=== PATIENT | female | born 1990 | race Caucasian/White ===

== ENCOUNTER 2020-08-20 09:58 | Observation (INO) ==
[2020-08-20 16:19] LABS: Hematocrit 38.2 % (37.0-47.0); Hemoglobin 12.2 gm/dL (12.5-16.0); Mean Cell Volume 88.6 fl (78-100); Mean Corpuscular Hemoglobin 28.3 pg (27-31); Mean Corpuscular Hgb Conc 31.9 g/dl (32-36); Mean Platelet Volume 9.8 fl (8-12.5); Neutrophil # 9.2 K/mm3 (1.3-6.0); Neutrophil % 74.3 % (42-75.0); Platelet Count 231 K/mm3 (150-450); Red Blood Count 4.31 M/mm3 (4.2-5.4); Red Cell Distribution Width 13.9 % (11.5-14.0); White Blood Count 12.4 K/mm3 (4.0-10.5)
[2020-08-20 16:32] LABS: Albumin * 2.3 gm/dl (3.4-5.0); Anion Gap 9.8 mmol/L (6.8-13.8); BUN/Creatinine Ratio 13.7 (9.0-21.6); Bilirubin, Total 0.2 mg/dL (0.0-1.1); Carbon Dioxide 27.1 mmol/L (24-32.6); Potassium 3.9 mmol/L (3.4-4.6); Total Protein 5.8 gm/dL (6.2-8.2)
[2020-08-20] MEDS ORDERED: INSULIN NPH HUMAN ISOPHANE 100 UNITS/ML VIAL SC SCH ×3 (17:00→21:00)
[2020-08-20] MEDS ORDERED: INSULIN LISPRO 100 UNITS/ML VIAL SC SCH (17:00)
[2020-08-20] MEDS: INSULIN LISPRO 100 UNITS/ML VIAL SC SCH (18:12)
[2020-08-20] MEDS ORDERED: ALBUTEROL SULFATE 2.5 MG/0.5 ML VIAL.NEB IH PRN (19:25)
[2020-08-20] MEDS ORDERED: ALBUTEROL SULFATE 200 PUFF INHALER IH PRN (19:25)
--- NOTE | 2020-08-20 19:25 | HP ---
Chief Complaint - Chief Complaint Date of Service: 08/20/20 Time of Service: 19:10 Chief Complaint: poorly controlled blood sugars History of Present Illness: 29 yo at 36w0d admitted for 23 hour observation for management of uncontrolled blood sugars. Patient has failed outpatient management of BS and ultrasound today shows accelerated growth especially of the AC. BS are erratic, suspecting poor compliance with diet. This complicated by anemia, anxiety/depression, asthma, GDM - insulin dependent, smoker, substance abuse in early , recurrent UTIs despite tx and suppressive tx, h/o PTL, morbid obesity. Rh positive Rubella Non-immune GBS negative. Medical History (Last Reviewed 08/20/20 @ 19:17 by Dc Juan DO) History of delivery, currently (Chronic) with inconclusive viability (Ruled-out) gestational sac 1.55cm consistent with 6w2d gestational age on 01/22/20 with 4.5mm yolk sac and no pole. 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 13 oz fluid around heart, 30 oz fluid around lungs, no known cause Gestational diabetes mellitus (GDM) Onset Date: ~01/15/16 with history of pre-term labor Onset Date: ~03/02/16 Shingles age 13 Surgical History: Surgical History (Last Reviewed 08/20/20 @ 19:17 by Dc Jaun DO) H/O adenoidectomy Onset Date: ~2004 H/O arthroscopic knee surgery Onset Date: ~2008 right ACL repair History of colposcopy Onset Date: ~2007 2 colposcopy per year 2007, 2008, 2009, 2010, 2011 History of thoracentesis age 12, fluid removal from heart and lungs Hx of tonsillectomy Onset Date: ~2004 Family History: Family History (Last Reviewed 08/20/20 @ 19:17 by Dc Juan DO) Mother Hypertension Asthma Father Hypertension CVA (cerebral vascular accident) Social History: (Last Reviewed 08/20/20 @ 19:17 by Dc Juan DO) Social History: Marital status: current occupational status: employed current occupation: [employer] Highest level of school completed/degree received: GED or equivalent Service: No Tobacco: Smoking Status: Current every day smoker tobacco type: cigarettes Smoking cigarettes per day: 5 Alcohol: alcohol intake: never Substance Use: substance use type: former substance user Dietary Habits: caffeine: Yes Review Of Systems (GEN) - Review of Systems Generalized/Overall Review: Present: No Symptoms Reported EENTM: Present: No Symptoms Reported Respiratory: Present: No Symptoms Reported Cardiac: Present: No Symptoms Reported Abdominal: Present: Other - discomfort due to Genitourinary: Present: Frequency Musculoskeletal: Present: Back Pain Neurological: Present: No Symptoms Reported Skin: Present: No Symptoms Reported Endocrine: Present: No Symptoms Reported Allergies/Adverse Reactions: Allergies Allergy/AdvReac Type Severity Reaction Status Date / Time cat dander Allergy Severe throat Verified 08/20/20 15:28 mendoza morrison No Known Drug Allergies Allergy Verified 08/20/20 15:28 Home Medications: HOME MEDICATIONS RX: Albuterol Sulfate [Albuterol Sulfate 0.63 MG/3ML] 0.63 mg INHALATION Q4H PRN 02/29/16 [Last Taken Unknown] RX: Albuterol Sulfate [Proair Hfa] 1 puff INHALATION QID PRN 02/29/16 [Last Taken Unknown] RX: Buspirone HCl 10 mg PO DAILY 02/29/16 [Last Taken 03/07/16] RX: Cetirizine HCl [Zyrtec] 10 mg PO DAILY 02/29/16 [Last Taken 03/07/16] RX: Citalopram Hydrobromide [Citalopram HBr] 10 mg PO DAILY 02/29/16 [Last Taken 03/07/16] RX: Vits96/Iron Fum/Folic [ S] 1 tab PO DAILY 02/29/16 [Last Taken 03/25/16] aspirin 81 mg tablet,delayed release 81 mg PO DAILY #30 tab 04/02/20 [Last Taken Unknown] blood sugar diagnostic See Rx Instructions .ROUTE .MEDSUPPLY #100 ea 06/14/20 [Last Taken Unknown] blood-glucose meter See Rx Instructions .ROUTE .MEDSUPPLY #1 ea 06/14/20 [Last Taken Unknown] lancets 28 gauge See Rx Instructions .ROUTE .MEDSUPPLY #100 ea 06/14/20 [Last Taken Unknown] urine glucose-ketones test See Rx Instructions .ROUTE .MEDSUPPLY #100 ea 06/14/20 [Last Taken Unknown] insulin syringe-needle U-100 1 mL 31 gauge x 5/16" See Rx Instructions .ROUTE .MEDSUPPLY #100 ea 06/24/20 [Last Taken Unknown] cefuroxime axetil 500 mg tablet 500 mg PO HS 30 Days #30 tab 07/29/20 [Last Taken 08/19/20] pseudoephedrine HCl 30 mg tablet 30 mg PO Q6H PRN 08/13/20 [Last Taken Unknown] fosfomycin tromethamine 3 gram oral packet 3 g PO Q2D 0 Days #3 ea 08/15/20 [Last Taken Unknown] insulin NPH isoph U-100 human 100 unit/mL subcutaneous suspension 24 unit SUBCUT BID #10 ml 08/20/20 [Last Taken Unknown] insulin lispro 100 unit/mL subcutaneous solution 10 unit SUBCUT BID #10 ml 08/20/20 [Last Taken Unknown] Exam - Exam Vital Signs: Vital Signs - Last Taken Temp 36.0 C 08/20/20 15:40 Pulse 115 H 08/20/20 15:40 Resp 20 08/20/20 15:40 BP 129/83 08/20/20 15:40 Pulse Ox 96 08/20/20 15:40 Constitutional: Present: Alert, Oriented x3, Cooperative, No distress ENT Exam: Present: hearing grossly normal Breasts: Present: Exam deferred Respiratory: Present: lungs clear, no respiratory distress Cardiovascular/Chest: Present: normal peripheral pulses, tachycardia Abdomen: Present: soft, nontender, no rebound tenderness, other - gravid /Rectal: Present: Exam deferred Extremity: Present: no calf tenderness, lower extremity edema Skin Exam: Present: normal color, warm/dry, no cyanosis Neurologic: Present: alert, normal mood/affect, oriented x 3 Appearance: Present: appropriate appearance, appropriate insight Eye contact: Present: cooperative, good eye contact Thoughts: Present: normal thought pattern, normal mood /affect Diagnostic Studies: Abnormal Lab Results 08/20/20 08/20/20 Range/Units 16:08 16:08 WBC 12.4 H (4.0-10.5) K/mm3 Hgb 12.2 L (12.5-16.0) gm/dL MCHC 31.9 L (32-36) g/dl Immature Gran % (Auto) 0.50 H (0.001-0.429) % Immature Gran # (Auto) 0.06 H (0.000-0.0310) K/mm3 Lymphocytes % 17.9 L (20-51) % Neutrophils # 9.2 H (1.3-6.0) K/mm3 Est GFR (Non-Af Amer) 149 H (60-130) mL/min Random Glucose 117 H (70-110) mg/dL Total Protein 5.8 L (6.2-8.2) gm/dL Albumin 2.3 L (3.4-5.0) gm/dl Laboratory Results WBC 12.4 K/mm3 (4.0-10.5) H 08/20/20 16:08 RBC 4.31 M/mm3 (4.2-5.4) 08/20/20 16:08 Hgb 12.2 gm/dL (12.5-16.0) L 08/20/20 16:08 Hct 38.2 % (37.0-47.0) 08/20/20 16:08 MCV 88.6 fl (78-100) 08/20/20 16:08 MCH 28.3 pg (27-31) 08/20/20 16:08 MCHC 31.9 g/dl (32-36) L 08/20/20 16:08 RDW 13.9 % (11.5-14.0) 08/20/20 16:08 Plt Count 231 K/mm3 (150-450) 08/20/20 16:08 MPV 9.8 fl (8-12.5) 08/20/20 16:08 Immature Gran % (Auto) 0.50 % (0.001-0.429) H 08/20/20 16:08 Immature Gran # (Auto) 0.06 K/mm3 (0.000-0.0310) H 08/20/20 16:08 Neutrophils % 74.3 % (42-75.0) 08/20/20 16:08 Lymphocytes % 17.9 % (20-51) L 08/20/20 16:08 Monocytes % 6.8 % (0.0-9) 08/20/20 16:08 Eosinophils % 0.3 % (0.0-3.0) 08/20/20 16:08 Basophils % 0.2 % (0.0-1.0) 08/20/20 16:08 Nucleated RBC % 0.0 k/mm3 (0-1) 08/20/20 16:08 Neutrophils # 9.2 K/mm3 (1.3-6.0) H 08/20/20 16:08 Lymphocytes # 2.23 k/mm3 (1.5-3.5) 08/20/20 16:08 Monocytes # 0.9 k/mm3 (0.0-1.0) 08/20/20 16:08 Eosinophils # 0.0 k/mm3 (0.0-0.7) 08/20/20 16:08 Absolute Basophils 0.0 k/mm3 (0.0-0.1) 08/20/20 16:08 Sodium 139 mmol/L (132-142) 08/20/20 16:08 Plasma Sodium 139 mmol/L (130-142) 08/20/20 16:08 Potassium 3.9 mmol/L (3.4-4.6) 08/20/20 16:08 Chloride 106 mmol/L (97-106) 08/20/20 16:08 Carbon Dioxide 27.1 mmol/L (24-32.6) 08/20/20 16:08 Anion Gap 9.8 mmol/L (6.8-13.8) 08/20/20 16:08 BUN 7 mg/dL (3-23) 08/20/20 16:08 Creatinine 0.51 mg/dL (0.4-1.4) 08/20/20 16:08 Est GFR (Non-Af Amer) 149 mL/min (60-130) H 08/20/20 16:08 BUN/Creatinine Ratio 13.7 (9.0-21.6) 08/20/20 16:08 Random Glucose 117 mg/dL (70-110) H 08/20/20 16:08 Calcium 9.0 mg/dL (7.9-10.9) 08/20/20 16:08 Calcium Adj for Albumin 10.0 mg/dL (8.4-10.2) 08/20/20 16:08 Total Bilirubin 0.2 mg/dL (0.0-1.1) 08/20/20 16:08 AST 19 U/L (0-48) 08/20/20 16:08 ALT 22 U/L (19-67) 08/20/20 16:08 Alkaline Phosphatase 165 U/L (50-170) 08/20/20 16:08 Total Protein 5.8 gm/dL (6.2-8.2) L 08/20/20 16:08 Albumin 2.3 gm/dl (3.4-5.0) L 08/20/20 16:08 Assessment/Plan - Assessment/Plan (1) Gestational diabetes mellitus in , insulin controlled Assessment: Will admit for monitoring of diet and BS on current regimen of insulin to see if changes need to be made to dosage. WIll also obtain dietary consult for further education on proper food selection/nutrition. Problem: Acute Qualifiers: Trimester: third trimester Qualified Code(s): O24.414 - Gestational diabetes mellitus in , insulin controlled (2) Recurrent UTI (urinary tract infection) complicating Problem: Acute Qualifiers: Trimester: third trimester Qualified Code(s): O23.43 - Unspecified infection of urinary tract in , third trimester (3) Asthma Problem: Chronic Qualifiers: Asthma severity: moderate Asthma persistence: persistent Asthma complication type: uncomplicated Qualified Code(s): J45.40 - Moderate persistent asthma, uncomplicated (4) Anemia Problem: Chronic Qualifiers: Anemia type: iron deficiency Iron deficiency anemia type: inadequate dietary iron intake Qualified Code(s): D50.8 - Other iron deficiency anemias (5) Tobacco abuse Problem: Chronic (6) Substance abuse complicating , antepartum Problem: Inactive (7) BMI 40.0-44.9, adult Problem: Chronic
[2020-08-20 19:41] LABS: Cocaine Ur Negative (NEGATIVE); Urine Barbiturate Negative (NEGATIVE); Urine Benzodiazepines Negative (NEGATIVE); Urine Opiates Negative (NEGATIVE); Urine PCP Negative (NEGATIVE)
[2020-08-20 20:05] LABS: Urine THC Negative (NEGATIVE)
[2020-08-20] MEDS ORDERED: ALBUTEROL SULFATE 0.63 MG/3 ML VIAL.NEB IH PRN (20:20)
[2020-08-20] MEDS ORDERED: CEFUROXIME AXETIL 500 MG TABLET PO SCH (21:00)
[2020-08-21] MEDS ORDERED: INSULIN LISPRO 100 UNITS/ML VIAL SC SCH (07:00)
[2020-08-21] MEDS: INSULIN LISPRO 100 UNITS/ML VIAL SC SCH ×2 (07:14→12:25)
[2020-08-21] MEDS: INSULIN NPH HUMAN ISOPHANE 100 UNITS/ML VIAL SC SCH ×2 (07:16→12:25)
[2020-08-21] MEDS ORDERED: ASPIRIN 81 MG TABLET.DR PO SCH (09:00)
[2020-08-21] MEDS ORDERED: PRENATAL VITS96/IRON FUM/FOLIC 1 TAB TABLET PO SCH (09:00)
[2020-08-21] MEDS ORDERED: CITALOPRAM HYDROBROMIDE 10 MG TABLET PO SCH (09:00)
[2020-08-21] MEDS ORDERED: busPIRone HCL 5 MG TABLET PO SCH (09:00)
[2020-08-21] MEDS ORDERED: LORATADINE 10 MG TABLET PO SCH (09:00)
[2020-08-21 17:10] VITALS: BP 136/76
--- NOTE | 2020-08-21 17:27 | PN ---
Subjective - Date and Time Seen Date: 08/21/20 Time: 16:45 Subjective Narrative: Patient denies complaints. She is tearful and wants to go home. Objective - Review of Systems Generalized/Overall Review: Reports: No Symptoms Reported EENTM: Reports: No Symptoms Reported Respiratory: Reports: No Symptoms Reported Cardiac: Reports: No Symptoms Reported Abdominal: Reports: No Symptoms Reported Genitourinary Symptoms: Reports: No Symptoms Reported Musculoskeletal Complaints: Reports: No Symptoms Reported Neurological: Reports: No Symptoms Reported Skin: Reports: No Symptoms Reported Endocrine: Reports: No Symptoms Reported - Vitals Vitals: Last Vital Signs Temp 36.4 C 08/21/20 14:00 Pulse 78 08/21/20 14:00 Resp 20 08/21/20 14:00 BP 136/76 08/21/20 14:00 Pulse Ox 99 08/21/20 14:00 - Exam Constitutional: Present: Alert, Oriented x3, Cooperative, No distress ENT Exam: Present: hearing grossly normal Breasts: Present: Exam deferred Respiratory: Present: no respiratory distress Cardiovascular/Chest: Present: edema - Regular rate /Rectal: Present: Exam deferred Skin Exam: Present: normal color Neurologic: Present: alert, oriented x 3 Appearance: Present: appropriate appearance Eye contact: Present: cooperative, good eye contact Thoughts: Present: normal thought pattern Assessment/Plan Plan Narrative: Throughout the past 24 hours of observation it has become apparent that erratic blood sugars are due to patient's nonadherence to her recommended diabetic diet/caloric intake. Current insulin regimen appears to be appropriate as long as patient follows her dietary plan. Counseled patient on the necessity for maintaining blood sugars in the recommended range to reduce her risk of macrosomia, hypoglycemia, shoulder dystocia, section, preecla mpsia, transfer to tertiary care center, and possible stillbirth. Offered patient transfer of care to [facility] but she declined due to transportation difficulty getting to appointments. Offered patient additional assistance in planning nutritious meals and adhering to her dietary requirements -she did not appear too excited about this. Discussed with patient the need for twice weekly NSTs due to her poor glycemic control and risk to fetus. Appointments made for patient prior to discharge today. - Problems/Diagnosis (1) Gestational diabetes mellitus in , insulin controlled Problem: Acute Qualifiers: Trimester: third trimester Qualified Code(s): O24.414 - Gestational diabetes mellitus in , insulin controlled (2) Recurrent UTI (urinary tract infection) complicating Problem: Acute Qualifiers: Trimester: third trimester Qualified Code(s): O23.43 - Unspecified infection of urinary tract in , third trimester (3) Asthma Problem: Chronic Qualifiers: Asthma severity: moderate Asthma persistence: persistent Asthma complic ation type: uncomplicated Qualified Code(s): J45.40 - Moderate persistent asthma, uncomplicated (4) Anemia Problem: Chronic Qualifiers: Anemia type: iron deficiency Iron deficiency anemia type: inadequate dietary iron intake Qualified Code(s): D50.8 - Other iron deficiency anemias (5) Tobacco abuse Problem: Chronic (6) Substance abuse complicating , antepartum Problem: Inactive (7) BMI 40.0-44.9, adult Problem: Chronic (8) Non-adherence to medical treatment Problem: Acute
--- NOTE | 2020-08-21 17:34 | DS ---
OB Discharge Summary (1) Gestational diabetes mellitus in , insulin controlled Status: Acute Qualifiers: Trimester: third trimester Qualified Code(s): O24.414 - Gestational diabetes mellitus in , insulin controlled (2) Recurrent UTI (urinary tract infection) complicating Status: Acute Qualifiers: Trimester: third trimester Qualified Code(s): O23.43 - Unspecified infection of urinary tract in , third trimester (3) Asthma Status: Chronic Qualifiers: Asthma severity: moderate Asthma persistence: persistent Asthma complication type: uncomplicated Qualified Code(s): J45.40 - Moderate persistent asthma, uncomplicated (4) Anemia Status: Chronic Qualifiers: Anemia type: iron deficiency Iron deficiency anemia type: inadequate dietary iron intake Qualified Code(s): D50.8 - Other iron deficiency anemias (5) Tobacco abuse Status: Chronic (6) Substance abuse complicating , antepartum Status: Inactive (7) BMI 40.0-44.9, adult Status: Chronic (8) Non-adherence to medical treatment Status: Acute Discharge Diagnosis: GDM - Insulin Dependent - Discharge Information Date of Discharge: 08/21/20 Hospital Course: 29-year-old 2 para 1 with insulin-dependent gestational diabetes ad mitted at 36 weeks for poorly controlled blood sugars. She was kept on the same insulin regimen she was instructed to take at home. Her blood sugars remained well controlled when she was adherent to her diet. She was instructed to continue with her current insulin regimen and follow her recommended diabetic diet. She was offered additional teaching and help in developing meal plan and ways to control her blood sugar which she declined. Nonstress test today was reassuring. She has appointment for another nonstress test and appointment on Wednesday, August 26, 2020. Discharge Location: Home Disposition: Home self-care Condition: Good Activity on Discharge:: Activity as tolerated Discharge Diet: Consistent carbs Additional Patient Instructions (free text): Please follow up with Dr Juan in the office on Wednesday08/26/20 @ 11:00AM. Your other appts are 08/29/20 @ 1100. 09/02/20 @ 1100 09/05/20 @ 1100 Please call with any questions/concerns. [facility] [phone]. Complete Home Medications List: Complete Home Medication List: RX: Albuterol Sulfate [Albuterol Sulfate 0.63 MG/3ML] 0.63 mg INHALATION Q4H PRN 02/29/16 RX: Albuterol Sulfate [Proair Hfa] 1 puff INHALATION QID PRN 02/29/16 RX: Buspirone HCl 10 mg PO DAILY 02/29/16 RX: Cetirizine HCl [Zyrtec] 10 mg PO DAILY 02/29/16 RX: Citalopram Hydrobromide [Citalopram HBr] 10 mg PO DAILY 02/29/16 RX: Vits96/Iron Fum/Folic [ S] 1 tab PO DAILY 02/29/16 aspirin 81 mg tablet,delayed release 81 mg PO DAILY #30 tab 04/02/20 blood sugar diagnostic See Rx Instructions .ROUTE .MEDSUPPLY #100 ea 06/14/20 blood-glucose meter See Rx Instructions .ROUTE .MEDSUPPLY #1 ea 06/14/20 lancets 28 gauge See Rx Instructions .ROUTE .MEDSUPPLY #100 ea 06/14/20 urine glucose-ketones test See Rx Instructions .ROUTE .MEDSUPPLY #100 ea 06/14/20 insulin syringe-needle U-100 1 mL 31 gauge x 09/15" See Rx Instructions .ROUTE .MEDSUPPLY #100 ea 06/24/20 cefuroxime axetil 500 mg tablet 500 mg PO HS 30 Days #30 tab 07/29/20 pseudoephedrine HCl 30 mg tablet 30 mg PO Q6H PRN 08/13/20 fosfomycin tromethamine 3 gram oral packet 3 g PO Q2D 0 Days #3 ea 08/15/20 insulin NPH isoph U-100 human 100 unit/mL subcutaneous suspension 24 unit SUBCUT BID #10 ml 08/20/20 insulin lispro 100 unit/mL subcutaneous solution 10 unit SUBCUT BID #10 ml 08/20/20 - Plan Discharge to:: Home Follow up in office in:: Other - 5 days
[2020-08-22] MEDS ORDERED: FOSFOMYCIN TROMETHAMINE 3 GM PACKET PO SCH (17:00)
== END 2020-08-21 17:55 | disposition home or self-care (01) ==
LOC: OB 09:58 → RAD 09:58 → MS 15:23
PROVIDERS: ADMIT Obstetrics & Gynecology; ATTEND Obstetrics & Gynecology
DX: O23.43 Unspecified infection of urinary tract in pregnancy, third trimester; Z72.0 Tobacco use; J45.40 Moderate persistent asthma, uncomplicated; Z3A.36 36 weeks gestation of pregnancy; O24.414 Gestational diabetes mellitus in pregnancy, insulin controlled; D50.8 Other iron deficiency anemias

== ENCOUNTER 2020-08-31 19:40 | Inpatient (IN) ==
[2020-08-31] MEDS ORDERED: OXYTOCIN/0.9 % SODIUM CHLORIDE 30 UNITS/500 ML BAG IV ONE (21:16)
[2020-08-31] MEDS ORDERED: ONDANSETRON 4 MG TAB.RAPDIS PO PRN (21:16)
[2020-08-31] MEDS ORDERED: RINGER'S SOLUTION,LACTATED 1,000 ML IV ONE (21:16)
[2020-08-31] MEDS ORDERED: INSULIN REGULAR, HUMAN 100 UNITS in NORMAL SALINE 100 ML IV PRN ×2 (21:16)
[2020-09-01] MEDS ORDERED: BUPIVACAINE HCL/0.9 % NACL/PF 250 ML EP PRN (00:50)
[2020-09-01] MEDS ORDERED: NALOXONE HCL 1 MG/1 ML SYRG IV PRN (00:50)
[2020-09-01] MEDS ORDERED: ONDANSETRON HCL/PF 2 MG/ML VIAL IV PRN (00:50)
[2020-09-01] MEDS ORDERED: fentaNYL CITRATE/PF 50 MCG/ML AMPUL IT SCH (01:00)
--- NOTE | 2020-09-01 01:09 | HP ---
Chief Complaint - Chief Complaint Date of Service: 09/01/20 Time of Service: 00:54 Chief Complaint: LOF History of Present Illness: 29 yo at 37w5d admitted for SROM around 1830 last pm. Patient admits to mild irregular contractions. Denies decreased FM, N/V/F/C, trauma. This complicated by anemia, anxiety/depression, asthma, GDM - insulin dependent, smoker, substance abuse in early , recurrent UTIs despite tx and suppressive tx, h/o PTL, morbid obesity. Rh positive Rubella Non-immune GBS negative. Medical History (Last Reviewed 09/01/20 @ 00:57 by Dc Juan DO) History of delivery, currently (Chronic) with inconclusive viability (Ruled-out) gestational sac 1.55cm consistent with 6w2d gestational age on 01/22/20 with 4.5mm yolk sac and no pole. 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 13 oz fluid around heart, 30 oz fluid around lungs, no known cause Gestational diabetes mellitus (GDM) Onset Date: ~01/15/16 with history of pre-term labor Onset Date: ~03/02/16 Shingles age 13 Surgical History: Surgical History (Last Reviewed 09/01/20 @ 00:57 by Dc Juan DO) H/O adenoidectomy Onset Date: ~2004 H/O arthroscopic knee surgery Onset Date: ~2008 right ACL repair History of colposcopy Onset Date: ~2007 2 colposcopy per year 2007, 2008, 2009, 2010, 2011 History of thoracentesis age 12, fluid removal from heart and lungs Hx of tonsillectomy Onset Date: ~2004 Family History: Family History (Last Reviewed 09/01/20 @ 00:57 by Dc Juan DO) Mother Hypertension Asthma Father Hypertension CVA (cerebral vascular accident) Social History: (Last Updated 08/29/20 @ 12:48 by Dc Juan DO) Social History: Marital status: current occupational status: employed current occupation: [employer] Highest level of school completed/degree received: GED or equivalent Service: No Tobacco: Smoking Status: Current every day smoker tobacco type: cigarettes Smoking cigarettes per day: 5 Alcohol: alcohol intake: never Substance Use: substance use type: former substance user Dietary Habits: caffeine: Yes Review Of Systems (GEN) - Review of Systems Generalized/Overall Review: Present: No Symptoms Reported EENTM: Present: No Symptoms Reported Respiratory: Present: No Symptoms Reported Cardiac: Present: No Symptoms Reported Abdominal: Present: No Symptoms Reported Genitourinary: Present: Other - LOF - clear since 1829 on 08/31/20. Musculoskeletal: Present: No Symptoms Reported Neurological: Present: No Symptoms Reported Skin: Present: No Symptoms Reported Endocrine: Present: No Symptoms Reported Allergies/Adverse Reactions: Allergies Allergy/AdvReac Type Severity Reaction Status Date / Time cat dander Allergy Severe throat Verified 08/29/20 11:47 mendoza morrison No Known Drug Allergies Allergy Verified 08/29/20 11:47 Home Medications: HOME MEDICATIONS Albuterol Sulfate [Albuterol Sulfate 0.63 MG/3ML] 0.63 mg IH Q4H PRN 02/29/16 [Last Taken Unknown] Albuterol Sulfate [Proair Hfa] 1 puff IH QID PRN 02/29/16 [Last Taken Unknown] Buspirone HCl 10 mg PO DAILY 02/29/16 [Last Taken 03/07/16] Cetirizine HCl [Zyrtec] 10 mg PO DAILY 02/29/16 [Last Taken 03/07/16] Citalopram Hydrobromide [Citalopram HBr] 10 mg PO DAILY 02/29/16 [Last Taken 03/07/16] Vits96/Iron Fum/Folic [ S] 1 tab PO DAILY 02/29/16 [Last Taken 03/25/16] aspirin 81 mg tablet,delayed release 81 mg PO DAILY #30 tab 04/02/20 [Last Taken Unknown] blood sugar diagnostic See Rx Instructions .ROUTE .MEDSUPPLY #100 ea 06/14/20 [Last Taken Unknown] blood-glucose meter See Rx Instructions .ROUTE .MEDSUPPLY #1 ea 06/14/20 [Last Taken Unknown] lancets 28 gauge See Rx Instructions .ROUTE .MEDSUPPLY #100 ea 06/14/20 [Last Taken Unknown] urine glucose-ketones test See Rx Instructions .ROUTE .MEDSUPPLY #100 ea 06/14/20 [Last Taken Unknown] insulin syringe-needle U-100 1 mL 31 gauge x 5/16" See Rx Instructions .ROUTE .MEDSUPPLY #100 ea 06/24/20 [Last Taken Unknown] cefuroxime axetil 500 mg tablet 500 mg PO HS 30 Days #30 tab 07/29/20 [Last Taken 08/19/20] insulin NPH isoph U-100 human 100 unit/mL subcutaneous suspension 40 unit SUBCUT HS vial 08/29/20 [Last Taken Unknown] Insulin Lispro 16 unit SQ QPM 08/31/20 [Last Taken Unknown] Insulin Lispro [Humalog] 12 units SC QAM 08/31/20 [Last Taken Unknown] Insulin NPH Human Isophane [Humulin N] 28 units SC QA 08/31/20 [Last Taken Unknown] Exam - Exam Vital Signs: Vital Signs - Last Taken Temp 35.9 C L 08/31/20 19:46 Pulse 123 H 08/31/20 19:46 Resp 18 08/31/20 19:46 BP 140/71 H 08/31/20 19:46 Pulse Ox 97 08/31/20 19:46 Constitutional: Present: Alert, Oriented x3, Cooperative ENT Exam: Present: hearing grossly normal Back Exam: Present: no CVA tenderness Respiratory: Present: lungs clear, no respiratory distress Cardiovascular/Chest: Present: tachycardia Abdomen: Present: soft, nontender, no rebound tenderness, other - gravid /Rectal: Present: Other - Cervix - 1/50/-3 Extremity: Present: no calf tenderness, lower extremity edema - 1+ Skin Exam: Present: normal color, warm/dry, no cyanosis Neurologic: Present: alert, normal mood/affect, oriented x 3 Appearance: Present: appropriate appearance, appropriate insight Eye contact: Present: cooperative, good eye contact Thoughts: Present: normal thought pattern, normal mood /affect Diagnostic Studies: Abnormal Lab Results 08/31/20 08/31/20 Range/Units 20:34 20:59 Membranes Rupture Positive H Positive H (Negative) Laboratory Results Membranes Rupture Positive (Negative) H 08/31/20 20:59 Assessment/Plan - Assessment/Plan (1) PROM (premature rupture of membranes) Assessment: Admit for pitocin augmentation of labor. Insulin drip protocol for GDM on insulin. Minimize vaginal exams. Monitor for s/s of infection. Epidural PRN. Problem: Acute Qualifiers: PROM onset of labor timing: onset of labor within 24 hours of rupture PROM gestational age: full term Qualified Code(s): O42.02 - Full-term premature rupture of membranes, onset of labor within 24 hours of rupture (2) Gestational diabetes mellitus in , insulin controlled Problem: Acute Qualifiers: Trimester: third trimester (3) Asthma Problem: Chronic Qualifiers: Asthma severity: mild Asthma persistence: intermittent Asthma complication type: uncomplicated Qualified Code(s): J45.20 - Mild intermittent asthma, uncomplicated (4) Anemia Problem: Chronic Qualifiers: Anemia type: iron deficiency Iron deficiency anemia type: inadequate dietary iron intake Qualified Code(s): D50.8 - Other iron deficiency anemias (5) Recurrent UTI (urinary tract infection) complicating Problem: Acute Qualifiers: Trimester: third trimester (6) BMI 45.0-49.9, adult Problem: Chronic (7) History of delivery, currently Problem: Chronic (8) Tobacco abuse Problem: Chronic (9) Substance abuse complicating , antepartum Problem: Inactive Non Stress Test - Status NST: 08/31/20 Reason for NST: gestational diabetes, other - r/o ROM Monitor Mode: External Acceleration: Present Decelerations: None Variability: Moderate 6-25 bpm Baseline Heart Rate: 130 Activity: reactive - Assessment NST Assessment: gestational diabetes, other - SROM - Plan NST Plan: Admit to L&D
[2020-09-01] MEDS ORDERED: LIDOCAINE HCL 50 ML VIAL ONE (01:49)
[2020-09-01] MEDS ORDERED: LIDOCAINE HCL 10 ML VIAL IJ ONE (01:50)
--- NOTE | 2020-09-01 02:05 | ANES ---
Anesthesia Pre Procedure Eval Vitals/Labs: Last Vital Signs Temp 35.9 C L 08/31/20 19:46 Pulse 123 H 08/31/20 19:46 Resp 18 08/31/20 19:46 BP 140/71 H 08/31/20 19:46 Pulse Ox 97 08/31/20 19:46 HOME MEDICATIONS Albuterol Sulfate [Albuterol Sulfate 0.63 MG/3ML] 0.63 mg IH Q4H PRN 02/29/16 [Last Taken Unknown] Albuterol Sulfate [Proair Hfa] 1 puff IH QID PRN 02/29/16 [Last Taken Unknown] Buspirone HCl 10 mg PO DAILY 02/29/16 [Last Taken 03/07/16] Cetirizine HCl [Zyrtec] 10 mg PO DAILY 02/29/16 [Last Taken 03/07/16] Citalopram Hydrobromide [Citalopram HBr] 10 mg PO DAILY 02/29/16 [Last Taken 03/07/16] Vits96/Iron Fum/Folic [ S] 1 tab PO DAILY 02/29/16 [Last Taken 03/25/16] aspirin 81 mg tablet,delayed release 81 mg PO DAILY #30 tab 04/02/20 [Last Taken Unknown] blood sugar diagnostic See Rx Instructions .ROUTE .MEDSUPPLY #100 ea 06/14/20 [Last Taken Unknown] blood-glucose meter See Rx Instructions .ROUTE .MEDSUPPLY #1 ea 06/14/20 [Last Taken Unknown] lancets 28 gauge See Rx Instructions .ROUTE .MEDSUPPLY #100 ea 06/14/20 [Last Taken Unknown] urine glucose-ketones test See Rx Instructions .ROUTE .MEDSUPPLY #100 ea 06/14/20 [Last Taken Unknown] insulin syringe-needle U-100 1 mL 31 gauge x 09/15" See Rx Instructions .ROUTE .MEDSUPPLY #100 ea 06/24/20 [Last Taken Unknown] cefuroxime axetil 500 mg tablet 500 mg PO HS 30 Days #30 tab 07/29/20 [Last Taken 08/19/20] insulin NPH isoph U-100 human 100 unit/mL subcutaneous suspension 40 unit SUBCUT HS vial 08/29/20 [Last Taken Unknown] Insulin Lispro 16 unit SQ QPM 08/31/20 [Last Taken Unknown] Insulin Lispro [Humalog] 12 units SC [facility] 08/31/20 [Last Taken Unknown] Insulin NPH Human Isophane [Humulin N] 28 units SC [facility] 08/31/20 [Last Taken Unknown] Allergies/Adverse Reactions: Allergies Allergy/AdvReac Type Severity Reaction Status Date / Time cat dander Allergy Severe throat Verified 08/29/20 11:47 swell, mendoza No Known Drug Allergies Allergy Verified 08/29/20 11:47 - Planned Procedure Planned Procedure: LABOR Medication List Reviewed:: Yes Allergies Verified: Yes Medical History (Last Reviewed 09/01/20 @ 02:04 by Frantz Jacques CRNA) History of delivery, currently (Chronic) with inconclusive viability (Ruled-out) gestational sac 1.55cm consistent with 6w2d gestational age on 01/22/20 with 4.5mm yolk sac and no pole. 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 13 oz fluid around heart, 30 oz fluid around lungs, no known cause Gestational diabetes mellitus (GDM) Onset Date: ~01/15/16 with history of pre-term labor Onset Date: ~03/02/16 Shingles age 13 Surgical History (Last Reviewed 09/01/20 @ 02:04 by Frantz Jacques CRNA) H/O adenoidectomy Onset Date: ~2004 H/O arthroscopic knee surgery Onset Date: ~2008 right ACL repair History of colposcopy Onset Date: ~2007 2 colposcopy per year 2007, 2008, 2009, 2010, 2011 History of thoracentesis age 12, fluid removal from heart and lungs Hx of tonsillectomy Onset Date: ~2004 Family History (Last Reviewed 09/01/20 @ 02:04 by Frantz Jacques CRNA) Mother Hypertension Asthma Father Hypertension CVA (cerebral vascular accident) - Family Anesthesia History Family History:: no untoward family reactions to anesthesia - Airway/Neck/Teeth Teeth Condition: poor condition Neck Exam: limited range of motion Mallampatti Score: 3 Thyromental (T-M) distance: > 6 cm Mandibulo Hyoid distance: > 3 cm - Respiratory Respiratory Physical: lungs clear Smoking Status: Current every day smoker Discussed smoking cessation including day of surgery: Yes Sleep Apnea currently treated: No Sleep Apnea by current assessment: No - Cardiovascular Tolerate Activity: Fair Heart Sounds: S1 & S2, Regular - Gastrointestinal NPO since: MN - Anesthesia Assessment and Plan ASA Class: PS, II, E Anesthesia Type Plan: Epidural Planned difficult intubation/equipment available: No
--- NOTE | 2020-09-01 02:05 | ANES ---
Post Anesthesia Discharge - Transfer of Care Transfer of Care handoff given to nurse: Yes - Anesthesia Post Op Note Anesthesia Post Op Note: Care transferred to OB RN
--- NOTE | 2020-09-01 02:06 | ANES ---
Post Anesthesia Assessment - Vital Signs Vitals: Last Vital Signs Temp 35.9 C L 08/31/20 19:46 Pulse 123 H 08/31/20 19:46 Resp 18 08/31/20 19:46 BP 140/71 H 08/31/20 19:46 Pulse Ox 97 08/31/20 19:46 Airway Patency: Normal - Mental Status Level Of Consciousness: Awake - Pain Level Pain Score: 0 - N/V Assessment Nausea/Vomiting Presence: None Dehydration:: No
--- NOTE | 2020-09-01 02:07 | ANES ---
Anesthesia Procedure Note Procedure Note: ANESTHESIA PROCEDURE NOTE Date of Procedure: 09/01/2020 Time of procedure: . Performed by: Corey Jacques CRNA Architectural Sales Consultant: None. Preprocedure diagnosis: Active labor. Post procedure diagnosis: Same. Procedure: Insertion of labor epidural. Indications: The patient is a 29-year-old multigravida female in active labor requesting labor epidural for pain management. Findings: See below. Details of the procedure: The patient was placed in a sitting position. Back was prepped with DuraPrep. Patient was then draped in a sterile fashion. Lidocaine 1% was infiltrated to the skin and subcutaneous tissues at the level of the L3 4 interspace. The epidural space was identified using a 18-gauge Tuohy needle with [id number] technique. 20 mcg fentanyl was given intrathecally using a 27 ga. spinal needle. Epidural catheter was inserted without difficulty. Negative test dose was elicited using 5 mL of 1.5% preservative-free lidocaine plus epinephrine 1 200,000. The epidural catheter was then taped and secured in place. EBL: Minimal. Fluids: N/A. Specimen: N/A. Post procedure condition: The patient tolerated the procedure well. No complications were noted. Thank you for this consultation. Raphael CRNA
[2020-09-01 03:47] LABS: Cocaine Ur Negative (NEGATIVE); Urine Barbiturate Negative (NEGATIVE); Urine Benzodiazepines Negative (NEGATIVE); Urine Opiates Negative (NEGATIVE); Urine PCP Negative (NEGATIVE)
[2020-09-01 03:48] LABS: Urine THC Negative (NEGATIVE)
[2020-09-01] MEDS ORDERED: SENNOSIDES 8.6 MG TABLET PO PRN (06:37)
[2020-09-01] MEDS ORDERED: OXYTOCIN/0.9 % SODIUM CHLORIDE 30 UNITS/500 ML BAG IV ONE (06:37)
[2020-09-01] MEDS ORDERED: IBUPROFEN 800 MG TABLET PO PRN (06:37)
[2020-09-01] MEDS ORDERED: HYDROCORTISONE 30 APPL TUBE TP PRN (06:37)
[2020-09-01] MEDS ORDERED: BENZOCAINE/MENTHOL 81 SPRAY CAN TP PRN (06:37)
[2020-09-01] MEDS ORDERED: GLYCERIN/WITCH HAZEL LEAF 40 APPL BOX TP PRN (06:37)
[2020-09-01] MEDS ORDERED: BISACODYL 10 MG SUPP.RECT RC PRN (06:37)
[2020-09-01] MEDS ORDERED: ALBUTEROL SULFATE 200 PUFF INHALER IH PRN (06:38)
[2020-09-01] MEDS ORDERED: ALBUTEROL SULFATE 0.63 MG/3 ML IH PRN (06:38)
--- NOTE | 2020-09-01 06:41 | OR ---
Operative Report - Dictated Report Narrative: Spontaneous vaginal delivery of vigorously crying viable female at 0617 on 09/01/2020 with Apgars 8 and 9, weighing 3674 g in KHOA position. Cord clamping delayed approximately 1 minute Placenta delivered complete, intact, with three vessel cord Estimated blood loss: 100 mL Anesthesia: Epidural Lacerations: None History for MU History for MU Definition: * The number of deliveries resulting in a live the patient experienced prior to current hospitalization * The previous delivery of live twins or any live multiple gestation is considered one live event. *If primagravida or nulliparous is documented select zero for the number of previous live births. Live Events: Live Events: 1
[2020-09-01] MEDS ORDERED: MISOPROSTOL 200 MCG TABLET RC ONE (07:20)
[2020-09-01] MEDS: IBUPROFEN 800 MG TABLET PO PRN ×3 (07:35→21:26)
[2020-09-01] MEDS: oxyCODONE HCL/ACETAMINOPHEN 1 TAB TABLET PO PRN ×5 (07:35→21:26)
[2020-09-01] MEDS ORDERED: RINGER'S SOLUTION,LACTATED 1,000 ML IV ONE (07:39)
--- NOTE | 2020-09-01 07:39 | PN ---
Progess Note - Interim Date: 09/01/20 Time: 07:35 Narrative: 09/01/20 07:35 Called to bedside by nurses for hemorrhage. Patient had passed approximately 600 mL of clot. Patient was given 400 mcg of Cytotec rectally and Pitocin 30 milliunits/min with IV fluid bolus. Uterine massage removed an additional 400 mL of clotted blood. Straight cath of the bladder removed 50 mL of urine. The uterus was firm and significantly less after the above procedures. Patient's vitals remain stable. We will continue to monitor closely for additional bleeding.
[2020-09-01 07:57] LABS: Hematocrit 35.1 % (37.0-47.0); Hemoglobin 11.2 gm/dL (12.5-16.0); Mean Cell Volume 88.9 fl (78-100); Mean Corpuscular Hemoglobin 28.4 pg (27-31); Mean Corpuscular Hgb Conc 31.9 g/dl (32-36); Mean Platelet Volume 9.8 fl (8-12.5); Neutrophil # 14.3 K/mm3 (1.3-6.0); Neutrophil % 81.9 % (42-75.0); Platelet Count 206 K/mm3 (150-450); Red Blood Count 3.95 M/mm3 (4.2-5.4); Red Cell Distribution Width 14.4 % (11.5-14.0); White Blood Count 17.5 K/mm3 (4.0-10.5)
[2020-09-01] MEDS: busPIRone HCL 5 MG TABLET PO SCH (10:14)
[2020-09-01] MEDS: CITALOPRAM HYDROBROMIDE 10 MG TABLET PO SCH (10:14)
[2020-09-01] MEDS: PRENATAL VITS96/IRON FUM/FOLIC 1 TAB TABLET PO SCH (10:15)
[2020-09-01] MEDS: DOCUSATE SODIUM 100 MG CAPSULE PO SCH ×2 (10:15→21:26)
[2020-09-01] MEDS: LORATADINE 10 MG TABLET PO SCH (10:15)
[2020-09-02] MEDS: oxyCODONE HCL/ACETAMINOPHEN 1 TAB TABLET PO PRN (07:29)
[2020-09-02] MEDS: busPIRone HCL 5 MG TABLET PO SCH (09:00)
[2020-09-02] MEDS: CITALOPRAM HYDROBROMIDE 10 MG TABLET PO SCH (09:00)
[2020-09-02] MEDS: DOCUSATE SODIUM 100 MG CAPSULE PO SCH (09:00)
[2020-09-02] MEDS: LORATADINE 10 MG TABLET PO SCH (09:00)
[2020-09-02] MEDS: PRENATAL VITS96/IRON FUM/FOLIC 1 TAB TABLET PO SCH (09:00)
[2020-09-02 09:02] VITALS: BP 128/73
--- NOTE | 2020-09-02 11:29 | PN ---
Subjective - Date and Time Seen Date: 09/02/20 Time: 11:26 Objective - Vitals Vitals: Last Vital Signs Temp 36.7 C 09/02/20 07:48 Pulse 92 09/02/20 07:48 Resp 16 09/02/20 07:48 BP 128/73 09/02/20 09:02 Pulse Ox 100 09/02/20 07:48 Patient denies complaints. Lochia wnl abdomen - soft, nontender Uterus -firm, at umbilicus - 1 No calf tenderness Impression: day #1 - s/p spontaneous vaginal delivery. Gestational diabetes-resolved. Patient desires early discharge since her baby was transferred to [facility] for respiratory distress. Plan: Continue routine care. Routine discharge instructions with the addition of checking a fasting and postprandial blood sugar the day before her appointment. Cauti Physician Documentation - Urinary Catheter Management Urethral ([place]) Date of Insertion: 09/01/20 Time of Insertion: 01:45 Date of Removal: 09/01/20 Time of Removal: 06:00 Assessment/Plan - Problems/Diagnosis (1) PROM (premature rupture of membranes) Problem: Resolved Qualifiers: PROM onset of labor timing: onset of labor within 24 hours of rupture PROM gestational age: full term Qualified Code(s): O42.02 - Full-term premature rupture of membranes, onset of labor within 24 hours of rupture (2) Gestational diabetes mellitus in , insulin controlled Problem: Resolved Qualifiers: Trimester: third trimester (3) Asthma Problem: Chronic Qualifiers: Asthma severity: mild Asthma persistence: intermittent Asthma complication type: uncomplicated Qualified Code(s): J45.20 - Mild intermittent asthma, uncomplicated (4) Anemia Problem: Chronic Qualifiers: Anemia type: iron deficiency Iron deficiency anemia type: inadequate dietary iron intake Qualified Code(s): D50.8 - Other iron deficiency anemias (5) Recurrent UTI (urinary tract infection) complicating Problem: Acute Qualifiers: Trimester: third trimester (6) BMI 45.0-49.9, adult Problem: Chronic (7) History of delivery, currently Problem: Chronic (8) Tobacco abuse Problem: Chronic (9) Substance abuse complicating , antepartum Problem: Inactive
--- NOTE | 2020-09-02 11:42 | DS ---
OB Discharge Summary (1) Normal vaginal delivery of second Status: Resolved (2) hemorrhage, delivered, current hospitalization Status: Acute (3) PROM (premature rupture of membranes) Status: Resolved Qualifiers: PROM onset of labor timing: onset of labor within 24 hours of rupture PROM gestational age: full term Qualified Code(s): O42.02 - Full-term premature rupture of membranes, onset of labor within 24 hours of rupture (4) Gestational diabetes mellitus in , insulin controlled Status: Resolved Qualifiers: Trimester: third trimester (5) Asthma Status: Chronic Qualifiers: Asthma severity: mild Asthma persistence: intermittent Asthma complication type: uncomplicated Qualified Code(s): J45.20 - Mild intermittent asthma, uncomplicated (6) Anemia Status: Chronic Qualifiers: Anemia type: iron deficiency Iron deficiency anemia type: inadequate dietary iron intake Qualified Code(s): D50.8 - Other iron deficiency anemias (7) Recurrent UTI (urinary tract infection) complicating Status: Acute Qualifiers: Trimester: third trimester (8) BMI 45.0-49.9, adult Status: Chronic (9) History of delivery, currently Status: Chronic (10) Tobacco abuse Status: Chronic (11) Substance abuse complicating , antepartum Status: Inactive (12) Not immune to rubella Status: Acute Delivery Date: 09/01/20 Delivery Time: 06:17 :: 2 Para:: 2 Gestational weeks:: 37 Gestational days:: 5 Intrapartum Procedures: Spontaneous Vaginal Delivery, Delivered Procedures: Other - manual evacuation of uterine clots. Discharge Diagnosis: Term -Delivered, Rubella Nonimmune - Discharge Information Date of Discharge: 09/02/20 Hospital Course: 29-year-old 2 now para 2 admitted at 37-5/7 weeks with premature rupture of membranes. Labor was augmented with Pitocin and went uneventfully. Shortly after delivery patient began having severe bleeding, losing approximately 600 mL of blood. Manual evacuation of clot removed an additional 400 mL of clot and her bleeding since that point remained minimal. She has been asymptomatic since then. fasting blood sugar was normal at 86 but 1 hour postprandial was elevated at 159. Approximately 45 minutes after, elham's baby began having respiratory issues and was transferred to [facility]. For this reason she was discharged today early so she can be with her baby. She will follow-up in 3 to 4 weeks for a visit and recheck her fasting and 1 hour postprandial blood sugars the day before her appointment. Discharge Location: Home Disposition: Home self-care Condition: Good Activity on Discharge:: Activity as tolerated, Pelvic Rest Discharge Diet: General/regular food Additional Patient Instructions (free text): Elham'rohan your follow up appointment is scheduled for WednesdaySeptember 24 @ 2:[address] Juan. Please check a fasting blood sugar and 1 hour blood sugar prior to your appointment. Please bring Dee back for a picture after she is discharged from [facility]. Thank you for choosing [facility]. If you have any questions or concerns please don't hesitate to call us at [phone]. Complete Home Medications List: Complete Home Medication List: Albuterol Sulfate [Albuterol Sulfate 0.63 MG/3ML] 0.63 mg IH Q4H PRN 02/29/16 Albuterol Sulfate [Proair Hfa] 1 puff IH QID PRN 02/29/16 Buspirone HCl 10 mg PO DAILY 02/29/16 Cetirizine HCl [Zyrtec] 10 mg PO DAILY 02/29/16 Citalopram Hydrobromide [Citalopram HBr] 10 mg PO DAILY 02/29/16 Vits96/Iron Fum/Folic [ S] 1 tab PO DAILY 02/29/16 aspirin 81 mg tablet,delayed release 81 mg PO DAILY #30 tab 04/02/20 blood sugar diagnostic See Rx Instructions .ROUTE .MEDSUPPLY #100 ea 06/14/20 blood-glucose meter See Rx Instructions .ROUTE .MEDSUPPLY #1 ea 06/14/20 lancets 28 gauge See Rx Instructions .ROUTE .MEDSUPPLY #100 ea 06/14/20 urine glucose-ketones test See Rx Instructions .ROUTE .MEDSUPPLY #100 ea 06/14/20 insulin syringe-needle U-100 1 mL 31 gauge x 09/15" See Rx Instructions .ROUTE .MEDSUPPLY #100 ea 06/24/20 cefuroxime axetil 500 mg tablet 500 mg PO HS 30 Days #30 tab 07/29/20 insulin NPH isoph U-100 human 100 unit/mL subcutaneous suspension 40 unit SUBCUT HS vial 08/29/20 Insulin Lispro 16 unit SQ QPM 08/31/20 Insulin Lispro [Humalog] 12 units SC QAM 08/31/20 Insulin NPH Human Isophane [Humulin N] 28 units SC QA 08/31/20 - Plan Discharge to:: Home Follow up in office in:: 3-4 weeks - [place] Information Weight (Grams): 3,674 Infant Sex: Female Score 1 min: 8 Score 5 min: 9 Complications: Other Other Complications: Respiratory distress, posturing. Transfered to NICU.
== END 2020-09-02 11:55 | disposition home or self-care (01) | DRG 806 ==
LOC: OBCLINIC 19:40 → OB 21:15
PROVIDERS: ADMIT Obstetrics & Gynecology; ATTEND Obstetrics & Gynecology